=== PATIENT | female | born 1980 | race Caucasian/White ===

== ENCOUNTER 2023-07-22 07:21 | Outpatient (CLI) | payer OTHER ==
[2023-07-22 08:20] LABS: #Basophils 0.1 10x3/uL (0.0-0.2); #Eosinphils 0.1 10x3/uL (0.0-0.5); #Monocytes 0.3 10x3/uL (0.0-1.1); #Neutrophils 3.4 10x3/uL (1.5-8.4); %Basophils 1.2 % (0.0-2.0); %Lymphocytes 24.9 % (18.0-47.0); %Monocytes 5.1 % (0.0-10.0); %Neutrophils 66.6 % (40.0-75.0); Hematocrit 37.1 % (34.9-44.5); Hemoglobin 12.7 g/dL (12.0-15.5); Mean Corpuscular HGB CONC 34.2 g/dL (32.0-36.0); Mean Corpuscular Hemoglobin 28.9 pg (27.0-33.0); Mean Corpuscular Volume 84.3 fl (81.6-98.3); Platelet Count 268 10x3/uL (150-450); RBC Distribution Width 12.5 % (11.5-14.5); White Blood Cell (WBC) Count 5.1 10x3/uL (3.5-10.5)
[2023-07-22 08:29] LABS: BHCG - Serum Negative (NEGATIVE); Pregs Control Background? CLEAR/WHITE (CLR/WHITE); Pregs Control Bar Appear? YES (CONTROL BAR)
== END 2023-07-22 07:22 | disposition home or self-care (01) ==
LOC: LABBT 07:21
PROVIDERS: ATTEND Orthopaedic Surgery Hand Surgery
DX: Z01.812 Encounter for preprocedural laboratory examination (principal); D17.22 Benign lipomatous neoplasm of skin and subcutaneous tissue of left arm; D48.9 Neoplasm of uncertain behavior, unspecified
CPT/HCPCS: 84703; 85025

== ENCOUNTER 2023-07-25 10:56 | Day surgery (SDC) | payer OTHER ==
[2023-07-22 12:42] VITALS: BMI 27.8
[~2023-07-25 10:56] MED LIST: Bacitracin Zinc Ointment 30 gm TUBE ONE
[2023-07-25] MEDS ORDERED: fentaNYL PF 100 MCG/2 ML SYRINGE ONE (11:02)
[2023-07-25] MEDS ORDERED: PROPOFOL 0 ML ONE (11:02)
[2023-07-25] MEDS ORDERED: CEFAZOLIN 2 GM VIAL ONE (11:03)
[2023-07-25] MEDS ORDERED: Sodium Chloride 0.9% 100 ML ONE (11:03)
== END 2023-07-25 11:50 | disposition short-term general hospital (02) ==
LOC: SDC 10:56
PROVIDERS: ATTEND Orthopaedic Surgery Hand Surgery
DX: D17.22 Benign lipomatous neoplasm of skin and subcutaneous tissue of left arm (principal); D48.9 Neoplasm of uncertain behavior, unspecified; Z53.9 Procedure and treatment not carried out, unspecified reason
CPT/HCPCS: J2704; J3490

== ENCOUNTER 2023-07-25 11:45 | Emergency (ER) | payer OTHER ==
[2023-07-25 13:23] LABS: BHCG - Serum Negative (NEGATIVE); Pregs Control Background? CLEAR/WHITE (CLR/WHITE); Pregs Control Bar Appear? YES (CONTROL BAR)
[2023-07-25 13:25] LABS: Anion Gap 11 mmol/L (10-20); BUN (Urea Nitrogen) 13 mg/dL (7.0-18.7); Calc. Creatinine Clearance 0 mL/min (70-130); Calcium 9.2 mg/dL (7.8-10.44); Carbon Dioxide 25 mmol/L (22-29); Chloride 105 mmol/L (98-107); Estimated GFR 69; Glucose 90 mg/dL (70-105); Sodium 137 mmol/L (136-145)
[2023-07-25] MEDS ORDERED: Hydrochlorothiazide 25 MG TAB PO SCH (14:15)
== END 2023-07-25 14:19 | disposition home or self-care (01) ==
LOC: ERS 11:45
DX: I10 Essential (primary) hypertension (principal); Z79.899 Other long term (current) drug therapy
CPT/HCPCS: 36415; 80048; 84703; 93005

== ENCOUNTER 2024-05-28 08:08 | Day surgery (SDC) | payer OTHER ==
[2024-05-27 11:56] VITALS: BMI 27.8
[2024-05-28 09:05] LABS: #Basophils 0.05 10x3/uL (0.0-0.2); %Basophils 0.9 % (0.0-1.0); %Eosinophils 1.8 % (0.0-10.0); %Lymphocytes 29.2 % (21.0-51.0); %Monocytes 6.2 % (0.0-10.0); %Neutrophils 61.7 % (42.0-75.0); Hematocrit 40.5 % (36.0-47.0); Hemoglobin 13.4 g/dL (12.0-16.0); Mean Corpuscular HGB CONC 33.1 g/dL (32.0-36.0); Mean Corpuscular Hemoglobin 29.1 pg (27.0-31.0); Mean Platelet Volume 9.8 fL (7.4-10.4); Platelet Count 256 10x3/uL (130-400); RBC Distribution Width 12.6 % (11.5-14.5)
[2024-05-28 09:22] LABS: Anion Gap 16 mmol/L (10-20); BUN (Urea Nitrogen) 16 mg/dL (7.0-18.7); Calc. Creatinine Clearance 93 mL/min (70-130); Calcium 9.2 mg/dL (7.8-10.44); Carbon Dioxide 19 mmol/L (22-29); Chloride 106 mmol/L (98-107); Estimated GFR 63; Glucose 96 mg/dL (70-105); Potassium 4.2 mmol/L (3.5-5.1); Sodium 137 mmol/L (136-145)
[2024-05-28] MEDS ORDERED: Lidocaine 1% PF 5 ML VIAL ONE (09:50)
[2024-05-28] MEDS ORDERED: PROPOFOL 200 MG/20 ML VIAL ONE (09:50)
[2024-05-28] MEDS ORDERED: Ondansetron PF 4 MG/2 ML Vial ONE (10:45)
[2024-05-28] MEDS ORDERED: Ketorolac Tromethamine 30 MG (1 mL) VIAL ONE (10:45)
== END 2024-05-28 13:50 | disposition home or self-care (01) ==
LOC: SDC 08:08
PROVIDERS: ATTEND Orthopaedic Surgery Hand Surgery
PROC: 0JBK0ZZ Excision of Left Hand Subcutaneous Tissue and Fascia, Open Approach (ICD-10-PCS; principal; 2024-05-28)
DX: D17.22 Benign lipomatous neoplasm of skin and subcutaneous tissue of left arm (principal); I10 Essential (primary) hypertension; Z79.899 Other long term (current) drug therapy
CPT/HCPCS: 80048; 85025; 88305; 88341; 88342; A6223; J1885; J2405

== ENCOUNTER 2024-07-14 11:51 | Outpatient (CLI) | payer BC, OTHER | END 2024-07-14 11:52 | disposition home or self-care (01) | LOC: BICMAMMO 11:51 | PROVIDERS: ATTEND Family Medicine | DX: Z12.31 Encounter for screening mammogram for malignant neoplasm of breast (principal) | CPT/HCPCS: 77063; 77067 ==